=== PATIENT | female | born 1995 | race Two or more races ===

== ENCOUNTER 2025-02-26 15:05 | Emergency (ER) | payer MEDICAID, SELFPAY ==
[2025-02-26 16:09] VITALS: BP 109/72; PULSE 85; RESP 16; TEMP 36.8; O2SAT 99; BMI 31.9
--- NOTE | 2025-02-26 16:22 | XR_ITS ---
Examination: Complete OB ultrasound, less than 14 weeks, transabdominal Date and time of exam: February 26, 2025 1627 hours INDICATIONS: Vaginal bleeding beginning 2 days ago Technique: Obstetrical ultrasound images less than 14 weeks performed via transabdominal imaging Findings: Uterus 7.0 cm endometrial stripe 1.1 cm No uterine mass or intrauterine gestation Right ovary 3.4 cm arterial flow 13 mm follicular cyst Left ovary 3.1 cm arterial flow IMPRESSION: No uterine mass or intrauterine gestation
--- NOTE | 2025-02-26 16:23 | PD.EDRME ---
Rapid Medical Screening Exam RME Arrival date/time: 02/26/25 15:05 29-year-old female G6, presents for concerns for vaginal bleeding Chief Complaint: Vaginal Bleeding Time Seen by Provider: 02/26/25 15:48 Vital signs: Vital Signs Temperature 98.2 F 02/26/25 16:09 Pulse Rate 85 02/26/25 16:09 Respiratory Rate 16 02/26/25 16:09 Blood Pressure 109/72 02/26/25 16:09 Pulse Oximetry (%) 99 02/26/25 16:09 Oxygen Delivery Method Room Air 02/26/25 16:09
[2025-02-26 17:04] LABS: Collection Type, Urine Clean Catch
[2025-02-26 17:21] LABS: Bilirubin,Urine Negative (Negative); Blood,Urine 3+ (Negative); Clarity,Urine Clear (Clear/Hazy); Color,Urine Lt Yellow (Lt Yel-Yel); Glucose, Urine Negative (Negative); Ketones,Urine Negative (Negative); Leukocyte Esterase,Urine Trace (Negative); Nitrite,Urine Negative (Negative); PH,Urine 6.0 (5.0-7.0); Protein,Urine Negative (Neg - Trace); Specific Gravity,Urine 1.020 (1.001-1.035); Urobilinogen,Urine 0.2 mg/dL (0.0-1.0)
[2025-02-26 17:22] LABS: Basophils # (Auto) 0.1 Thou/mm3 (0.0-0.2); Basophils % (Auto) 1 % (0-2.5); Eosinophils # (Auto) 0.0 Thou/mm3 (0.0-0.5); Eosinophils % (Auto) 1 % (0-10); Hematocrit 35.7 % (36.0-46.0); Hemoglobin 11.5 g/dL (12.0-16.0); Immature Granulocytes Auto 0.01 Thou/mm3 (0.00-0.00); Lymphocytes # (Auto) 2.2 Thou/mm3 (1.0-4.8); Lymphocytes % (Auto) 44 % (10-50); Mean Corpuscular HGB Conc 32.2 g/dl (31.0-37.0); Mean Corpuscular Hemoglobin 29.3 pg (25.0-35.0); Mean Corpuscular Volume 91 fL (80-100); Monocytes # (Auto) 0.5 Thou/mm3 (0.0-0.8); Monocytes % (Auto) 11 % (0-12); Neutrophils # (Auto) 2.1 Thou/mm3 (1.8-7.7); Neutrophils % (Auto) 43 % (37-80); Nucleated Red Blood Cell # 0.00 Thou/mm3 (0.00-0.00); Nucleated Red Blood Cell % 0 /100 WBC (0); Platelet Count 225 Thou/mm3 (140-440); RDW Standard Deviation 46.9 fL (36.4-46.3); Red Blood Count 3.93 Miln/mm3 (4.00-5.20); White Blood Count 4.9 Thou/mm3 (3.6-11.0)
[2025-02-26 17:49] LABS: Bacteria,Urine Rare; RBC,Urine 25 /hpf (0-3); Squamous Epithelial Cell,Urine 2 /hpf (0-5); WBC,Urine 5 /hpf (0-5)
[2025-02-26 17:58] LABS: Alanine Aminotransferase 10 U/L (10-49); Albumin, Serum 4.2 gm/dL (3.5-5.0); Albumin/Globulin Ratio 1.8 (1.2-2.2); Alkaline Phosphatase 93 U/L (46-116); Anion Gap 9 (7-16); Aspartate Amino Transferase 18 U/L (0-34); BUN/Creatinine Ratio 8 Ratio (12-20); Bilirubin,Total 0.3 mg/dL (0.3-1.2); Blood Urea Nitrogen 5 mg/dL (9-23); Calcium 9.8 mg/dL (8.3-10.6); Calcium (Corrected) 9.8 mg/dL (8.5-10.1); Carbon Dioxide 25.8 mMol/L (20.0-31.0); Chloride 107 mMol/L (98-107); Creatinine (Component) 0.6 mg/dL (0.6-1.3); Estimated Creatinine Clearance 131.9 mL/min (>60); Globulin 2.4 gm/dL (2.3-3.5); Glucose 84 mg/dL (74-106); Osmolality,Calculated 279 (275-295); Potassium 4.0 mMol/L (3.4-5.1); Sodium 142 mMol/L (136-145); Total Protein 6.6 gm/dL (5.7-8.2); eGFR > 60 See Note
[2025-02-26 18:07] LABS: Beta HCG,Quantitative 4910 mIU/mL (<5.0)
--- NOTE | 2025-02-26 19:58 | EDNOTE_ITS ---
ED OB Contraction Preg RMI/HPI General Chief complaint: Vaginal Bleeding Stated complaint: 4 weeks OB, vaginal bleeding X 2 days Time Seen by Provider: 02/26/25 15:48 Arrival date/time: 02/26/25 15:05 RME / HPI RME / HPI Narrative: 02/26/25 15:05 29-year-old female G6, presents for concerns for vaginal bleeding --------- See MDM for HPI documentation. Related Data Previous Rx's ?Medication ?Instructions ?Recorded famotidine 20 mg tablet 20 mg PO QDAY #14 tabs 04/12 meloxicam 7.5 mg tablet 7.5 mg PO QDAY #14 tabs 09/29 famotidine 20 mg tablet (Pepcid) 20 mg PO QDAY 30 days #30 tabs 07/17/22 aluminum-mag hydroxide-simethicone 10 ml PO BID PRN in digestion #355 01/28/23 400 mg-400 mg-40 mg/5 mL oral susp mL (Mylanta Maximum Strength) omeprazole 20 mg capsule,delayed 20 mg PO QDAY #30 cap s 02/02/23 release sucralfate 100 mg/mL oral 10 ml PO QID #414 mL 3 suspension (Carafate) Allergies Allergy/AdvReac Type Severity Reaction Status Date / Time No Known Allergies Allergy Verified 02/26/25 15:12 Review of Systems Review of Systems Systems Reviewed: All systems reviewed, normal except as documented Past Medical History Past Medical History CARDIAC: Negative Cardiac Disorders or Congestive Heart Failure RESPIRATORY: Negative Chronic Obstructive Pulmonary Disease (COPD) or Asthma GENITOURINARY: Negative Renal Disease ENDOCRINE: Negative Diabetes Mellitus Type 1 or Diabetes Mellitus Type 2 HEMATOLOGIC: Negative Sickle Cell Disease Social History SMOKING STATUS: Never smoker SUBSTANCE USE: does not use ED Exam Narrative Physical exam: See MDM for physical exam documentation. Course Quality Measures none Orders Category Date Time Status US OB <= 14 weeks fetus Stat Exams 02/26/25 16:22 Completed ABO/RH Type Stat Lab 02/26/25 16:50 Completed Beta HCG,Quantitative Stat Lab 02/26/25 16:50 Completed CBC Stat Lab 02/26/25 16:50 Completed Comprehensive Metabolic Panel Stat Lab 02/26/25 16:50 Completed UA [Urinalysis] Stat Lab 02/26/25 16:58 Completed Urine Culture Stat Lab 02/26/25 16:58 Received Vital Signs Vital signs: Vital Signs Temperature 98.2 F 02/26/25 16:09 Pulse Rate 85 02/26/25 16:09 Respiratory Rate 16 02/26/25 16:09 Blood Pressure 109/72 02/26/25 16:09 Pulse Oximetry (%) 99 02/26/25 16:09 Oxygen Delivery Method Room Air 02/26/25 16:09 Vaginal Bleeding MDM Narrative MDM Narrative: This section includes all my notes and documentations, including HPI, PE, and ED course. Federico Pena MD HPI: 29yo female here with vaginal spotting since yesterday. LMP 01/29/25. No vomiting or cramping. No other complaints reported. ROS: All negative except as documented in HPI. Physical Exam: General: Alert and oriented. No acute distress when remaining still. Eyes: Conjunctivae and lids clear. ENT: No nasal congestion. Neck: Supple. Heart: RRR. Lungs: No respiratory distress. Good air movement. No rhonchi, wheezing, rales. Abdomen: Soft and nontender. Normal bowel sounds. No distension. No rebound or guarding. Back: No CVA tenderness. Skin: Warm and dry. Neuro: Alert and oriented X 3. I reviewed all diagnostic test results. My review of the US report is no IUP. Blood and urine tests remarkable for hCG 4910. At this point, diagnoses include threatened miscarriage. Recommended expectant management. Based on my best medical judgment, made decision no further evaluation or treatment indicated at this time. Patient understands and agrees to the discharge instructions customized and printed, see below. Discharge Instructions from Dr. Pena printed for you: 1. After evaluation, blood test shows you are . But there is no in your uterus. 2. We may be too early to see in the uterus at this point. 3. Only time will tell what will happen. If your symptoms, including bleeding, worsen, you can have a miscarriage. If your symptoms stop, you can have successful . 4. If you do have a miscarriage, we won't be able to save your baby. Under 20-24 weeks, we can't save the baby. 5. No sexual activity until cleared by a doctor taking care of you. 6. See a private doctor on 03/01/2025 for recheck and further care. Ask to review all test results and official radiology reports, to make sure you receive all necessary follow-ups and monitoring. Your hCG ( hormone level) was 4910. This doubles every 2 to 3 days in normal . Ask to repeat ultrasound in 1-2 weeks, earlier will be too early. 7. Seek immediate medical care with intolerable pain, extremely heavy vaginal bleeding (soaking more than 3 pads per hour), or with any concerns. Federico Pena MD Patient data External records reviewed:: [facility] previous records (Per chart review, patient was seen here on 02/02/23 for gastritis.) Clinical information provided by:: patient Social determinants that could affect healthcare access:: none Patient has the following chronic illnesses:: none How is presenting disease/condition affected by chronic disease/condition?: no chronic disease Evaluation data The following diagnostics were reviewed and interpreted by me:: lab results and radiology exam(s) Lab and/or radiology exams considered but not ordered:: none Interpretation Summary: I reviewed all diagnostic test results. My review of the US report is no IUP. Blood and urine tests remarkable for hCG 4910. Medications / Prescriptions Medications or Prescriptions considered but not ordered:: none Medication administrations:: none Consultations Consultation(s) initiated? (list below): No Diagnosis Vaginal Bleeding Differential Diagnosis: missed , threatened , dysfunctional uterine bleeding, menometrorrhagia, incomplete , ectopic without intrauterine , vaginal bleeding and other (early ) Most likely diagnosis given after review of the tests above:: Threatened miscarriage Admission Indicated Admission indicated?: not indicated Explain why admission is indicated or not indicated:: With no condition needing emergent intervention, there was no indication for admission. Admission Request Was there a request for admission?: No Disposition Plan Disposition Plan: Discharge Discharge Attestation Discharge Attestation: The patient and all family members were given an opportunity to ask questions and understood the discharge instructions. Discharge instructions specifically effects, indications for sooner follow up or return to the emergency department, and the expected course of current diagnosis. Patient condition: Stable Discharge Plan Plan Patient Disposition: HOME (Self Care) Prescriptions/Referrals Prescriptions/Med Rec: No Action meloxicam 7.5 mg tablet 7.5 mg PO QDAY Qty: 14 0RF famotidine 20 mg tablet 20 mg PO QDAY Qty: 14 0RF alum-mag hydroxide-simeth [Mylanta Maximum Strength] 400-400-40 mg/5 mL suspension 10 ml PO BID PRN (Reason: indigestion) Qty: 355 0RF famotidine [Pepcid] 20 mg tablet 20 mg PO QDAY 30 Days Qty: 30 1RF sucralfate [Carafate] 100 mg/mL suspension 10 ml PO QID Qty: 414 0RF omeprazole 20 mg capsule,delayed release(DR/EC) 20 mg PO QDAY Qty: 30 0RF Referrals: Phillip Ferrer MD [Primary Care Provider] - In 1 week Problem List Clinical Impression: Threatened miscarriage Patient/Caregiver Discharge Instructions Education Materials: ED Possible Miscarriage ... Additional Instructions: Discharge Instructions from Dr. Pena printed for you: 1.? After evaluation, blood test shows you are . But there is no in your uterus. 2.? We may be too early to see in the uterus at this point. 3.? Only time will tell what will happen. If your symptoms, including bleeding, worsen, you can have a miscarriage. If your symptoms stop, you can have successful . 4.? If you do have a miscarriage, we won't be able to save your baby. Under 20-24 weeks, we can't save the baby. 5.? No sexual activity until cleared by a doctor taking care of you. 6.? See a private doctor on 03/01/2025 for recheck and further care. Ask to review all test results and official radiology reports, to make sure you receive all necessary follow-ups and monitoring. Your hCG ( hormone level) was 4910.? This doubles every 2 to 3 days in normal . Ask to repeat ultrasound in 1-2 weeks, earlier will be too early. 7.? Seek immediate medical care with intolerable pain, extremely heavy vaginal bleeding (soaking more than 3 pads per hour), or with any concerns. Print Language: Citizen Of [place] Stand Alone Forms: [employer] Award Info., Patient Portal Info Letter
== END 2025-02-26 20:10 | disposition home or self-care (01) ==
PROVIDERS: Nurse Practitioner Primary Care; Emergency Provider Emergency Medicine; PCP Family Medicine
DX: O20.0 Threatened abortion (principal); Z3A.01 Less than 8 weeks gestation of pregnancy
CPT/HCPCS: 36415; 76801; 80053; 81001; 84702; 85025; 86900; 86901; 87086; 99283